=== PATIENT | female | born 1970 | race Caucasian/White ===

== ENCOUNTER → 2017-02-05 | Outpatient (CLI) | payer MEDICAID ==
[~2017-02-05] VITALS: Ht 163.8 cm; Wt 138.3 kg
[~2017-02-05] MED LIST: CARDIZEM CD 24240 MG PO; COZAAR 25MG25 MG/TAB PO; HYGROTON 2525 MG/TAB PO; MOTRIN 600600 MG/TAB PO; PERCOCET 325 MG1 TA2 PO; PROCARDIA XL 6060 MG PO; TRANDATE300 MG PO; WELLBUTRIN XL300 M1 PO
[2017-02-05 14:48] VITALS: BP 126/74; PULSE 84
== END ==
LOC: LIGHT 01-02 08:53
DX: E66.01 Morbid (severe) obesity due to excess calories (principal); Z68.43 Body mass index [BMI] 50.0-59.9, adult; Z71.3 Dietary counseling and surveillance; I10 Essential (primary) hypertension; E78.5 Hyperlipidemia, unspecified; E88.81 Metabolic syndrome and other insulin resistance

== ENCOUNTER → 2017-03-12 | Outpatient (CLI) | payer MEDICAID ==
[~2017-03-12] VITALS: Ht 163.8 cm; Wt 138.1 kg
[2017-03-12 16:15] VITALS: BP 150/76; PULSE 64
== END ==
LOC: SUN.DIA 02-25 15:02 → LIGHT 02-25 15:05
DX: E66.01 Morbid (severe) obesity due to excess calories (principal); Z68.43 Body mass index [BMI] 50.0-59.9, adult; Z71.3 Dietary counseling and surveillance; I10 Essential (primary) hypertension; E78.5 Hyperlipidemia, unspecified; E88.81 Metabolic syndrome and other insulin resistance

== ENCOUNTER → 2017-03-25 | Outpatient (CLI) | payer MEDICAID | LOC: LIGHT 13:02 | DX: Z01.818 Encounter for other preprocedural examination (principal) ==

== ENCOUNTER → 2017-05-14 | Outpatient (CLI) | payer MEDICAID | LOC: MC.RAD 08:40 | DX: Z12.31 Encounter for screening mammogram for malignant neoplasm of breast (principal) ==

== ENCOUNTER → 2021-05-29 | Outpatient (CLI) | payer MEDICAID | LOC: MC.RAD 11:15 | DX: Z12.31 Encounter for screening mammogram for malignant neoplasm of breast (principal) ==

== ENCOUNTER 2021-11-24 13:00 | Outpatient (RCR) | payer MEDICAID | END 2021-11-25 | disposition home or self-care (01) | LOC: PT.GENESIS | DX: M17.11 Unilateral primary osteoarthritis, right knee (principal); S83.422D Sprain of lateral collateral ligament of left knee, subsequent encounter; W19.XXXD Unspecified fall, subsequent encounter ==

== ENCOUNTER 2021-12-13 08:45 | Outpatient (RCR) | payer MEDICAID | END 2021-12-26 | disposition still patient (30) | LOC: PT.GENESIS | DX: M17.11 Unilateral primary osteoarthritis, right knee (principal); S83.422D Sprain of lateral collateral ligament of left knee, subsequent encounter; W19.XXXD Unspecified fall, subsequent encounter ==

== ENCOUNTER 2022-01-22 10:00 | Outpatient (RCR) | payer MEDICAID | END 2022-01-25 | disposition still patient (30) | LOC: PT.GENESIS | DX: M17.11 Unilateral primary osteoarthritis, right knee (principal); S83.422D Sprain of lateral collateral ligament of left knee, subsequent encounter; W19.XXXD Unspecified fall, subsequent encounter ==

== ENCOUNTER 2022-02-13 08:45 | Outpatient (RCR) | payer MEDICAID | END 2022-02-25 | disposition home or self-care (01) | LOC: PT.GENESIS | DX: M17.11 Unilateral primary osteoarthritis, right knee (principal); S83.422D Sprain of lateral collateral ligament of left knee, subsequent encounter; W19.XXXD Unspecified fall, subsequent encounter ==

== ENCOUNTER 2022-03-27 08:45 | Outpatient (RCR) | payer MEDICAID | END 2022-03-28 15:22 | disposition home or self-care (01) | LOC: PT.GENESIS 08:45 | DX: M17.11 Unilateral primary osteoarthritis, right knee (principal) ==

== ENCOUNTER → 2022-09-25 | Outpatient (RCR) | payer MEDICAID | END | disposition home or self-care (01) | LOC: PT.GENESIS | DX: M25.512 Pain in left shoulder (principal); M25.562 Pain in left knee; M25.352 Other instability, left hip ==

== ENCOUNTER 2022-10-23 09:00 | Outpatient (RCR) | payer MEDICAID | END 2022-10-26 | disposition home or self-care (01) | LOC: PT.GENESIS | DX: M77.8 Other enthesopathies, not elsewhere classified (principal); M25.562 Pain in left knee; M25.352 Other instability, left hip ==

== ENCOUNTER 2022-11-20 09:00 | Outpatient (RCR) | payer MEDICAID | END 2022-11-25 | disposition home or self-care (01) | LOC: PT.GENESIS | DX: M77.8 Other enthesopathies, not elsewhere classified (principal); M25.552 Pain in left hip; M25.512 Pain in left shoulder ==